=== PATIENT | female | born 1990 | race American Indian/Alaskan Native ===

== ENCOUNTER 2022-04-24 07:33 | Emergency (ER) | payer SELFPAY ==
[2022-04-24 08:12] VITALS: BP 113/62
--- NOTE | 2022-04-24 08:41 | XRay Report ---
XR chest routine 2V INDICATION / CLINICAL INFORMATION: cough. COMPARISON: None available. FINDINGS: SUPPORT DEVICES: None. HEART /PULMONARY VASCULATURE: No significant abnormality. LUNGS / PLEURA: No significant pulmonary or pleural abnormality. No pneumothorax. ADDITIONAL FINDINGS: No significant additional findings. IMPRESSION: 1. No acute findings. Signer Name: Fabian Pitts MD Signed: 04/24/2022 8:36 AM Workstation Name: [id number]
[2022-04-24] MEDS ORDERED: predniSONE 20 MG TAB PO ONE (10:16)
[2022-04-24] MEDS ORDERED: BENZONATATE 100 MG CAP PO ONE (10:16)
[2022-04-24] MEDS ORDERED: ACETAMINOPHEN W/CODEINE 300-30 MG TAB PO ONE (10:16)
--- NOTE | 2022-04-24 10:34 | Emergency Department Report ---
ED ENT HPI - General Chief complaint: Upper Respiratory Infection Stated complaint: SORETHROAT EYE IRRITATION Time Seen by Provider: 04/24/22 09:41 Source: patient Mode of arrival: Ambulatory Limitations: No Limitations - History of Present Illness Initial comments: 31-year-old black female with a past medical history of asthma presents to the emergency department for evaluation of 2-week history of sore throat, cough, then developed drainage from her right eye 2 days ago. She states that when she wakes up in the morning she has yellow crusted drainage to her eye and is crusted shut and she has to wipe it before she can open it. She states that it feels like dirt inside her eyes. She states that she is also has some shortness of breath, congestion and runny nose but denies fever. MD complaint: sore throat -: Gradual, week(s) (2) Location: throat Severity: moderate Severity scale (0 -10): 7 Quality: burning, aching Consistency: constant Worsens with: swallowing Associated Symptoms: cough, pain with swallowing, sore throat, rhinorrhea. denies: fever, gum swelling, toothache, tinnitus, hearing loss, discharge from ear - Related Data Previous Rx's Medication Instructions Recorded Last Taken Type Benzonatate [Tessalon Perles] 100 mg PO Q8HR PRN #30 cap 04/24/22 Unknown Rx Brompheniramine/Pseudoephed/Dm 10 ml PO TID PRN #120 ml 04/24/22 Unknown Rx [Bromfed Dm Cough Syrup] Ofloxacin 0.3% [Floxin 0.3% Otic] 2 drops OD QID 5 Days #1 bottle 04/24/22 Un known Rx Prednisone [predniSONE 10 mg 10 mg PO .TAPER #1 pack 04/24/22 Unknown Rx (6-Day Pack, 21 Tabs)] Allergies Allergy/AdvReac Type Severity Reaction Status Date / Time No Known Allergies Allergy Verified 04/24/22 07:57 ED Dental HPI - General Chief complaint: Upper Respiratory Infection Stated complaint: SORETHROAT EYE IRRITATION Time Seen by Provider: 04/24/22 09:41 Source: patient Mode of arrival: Ambulatory Limitations: No Limitations - Related Data Previous Rx's Medication Instructions Recorded Last Taken Type Benzonatate [Tessalon Perles] 100 mg PO Q8HR PRN #30 cap 04/24/22 Unknown Rx Brompheniramine/Pseudoephed/Dm 10 ml PO TID PRN #120 ml 04/24/22 Unknown Rx [Bromfed Dm Cough Syrup] Ofloxacin 0.3% [Floxin 0.3% Otic] 2 drops OD QID 5 Days #1 bottle 04/24/22 Unknown Rx Prednisone [predniSONE 10 mg 10 mg PO .TAPER #1 pack 04/24/22 Unknown Rx (6-Day Pack, 21 Tabs)] Allergies Allergy/AdvReac Type Severity Reaction Status Date / Time No Known Allergies Allergy Verified 04/24/22 07:57 ED Review of Systems ROS: Stated complaint: SORETHROAT EYE IRRITATION Other details as noted in HPI Comment: All other systems reviewed and negative Constitutional: denies: chills, fever, malaise, weakness Eyes: eye discharge. denies: vision change ENT: throat pain, congestion. denies: ear pain, dental pain, hearing loss, epistaxis Respiratory: cough, shortness of breath. denies: SOB with exertion, SOB at rest, stridor, wheezing Cardiovascular: denies: chest pain, palpitations Gastrointestinal: denies: abdominal pain, nausea, vomiting Musculoskeletal: denies: back pain Skin: denies: rash, lesions Neurological: denies: headache, weakness ED Past Medical Hx - Past Medical History Hx Asthma: Yes - Surgical History Past Surgical History?: No - Social History Smoking Status: Never Smoker - Medications Home Medications: Home Medications Medication Instructions Recorded Confirmed Last Taken Type Benzonatate [Tessalon Perles] 100 mg PO Q8HR PRN #30 cap 04/24/22 Unknown Rx Brompheniramine/Pseudoephed/Dm 10 ml PO TID PRN #120 ml 04/24/22 Unknown Rx [Bromfed Dm Cough Syrup] Ofloxacin 0.3% [Floxin 0.3% Otic] 2 drops OD QID 5 Days #1 bottle 04/24/22 Unknown Rx Prednisone [predniSONE 10 mg 10 mg PO .TAPER #1 pack 04/24/22 Unknown Rx (6-Day Pack, 21 Tabs)] ED Physical Exam - General Limitations: No Limitations General appearance: alert, in no apparent distress, anxious - Head Head exam: Present: atraumatic, normocephalic - Eye Eye exam: Present: conjunctival injection. Absent: periorbital tenderness - Expanded Eye Exam Expanded Eyelids: Swelling: Right Pupils: Regular, Round: Bilateral, Reactive: Bilateral Sclera/Conjunctival: Normal Inspection: Left, Injection: Right, Exudate: Right - ENT ENT exam: Present: TM's normal bilaterally. Absent: normal exam (Bilateral nasal mucosal edema and turbinate swelling noted with rhinorrhea), normal orophraynx (Erythema noted to posterior oropharynx) - Neck Neck exam: Present: normal inspection, full ROM. Absent: tenderness, lym phadenopathy - Respiratory Respiratory exam: Present: normal lung sounds bilaterally. Absent: respiratory distress, wheezes, rales, rhonchi, stridor, chest wall tenderness - Cardiovascular Cardiovascular Exam: Present: regular rate, normal heart sounds - GI/Abdominal GI/Abdominal exam: Present: soft, normal bowel sounds. Absent: distended, tenderness - Extremities Exam Extremities exam: Present: normal inspection, normal capillary refill - Back Exam Back exam: Present: normal inspection. Absent: CVA tenderness (R), CVA tenderness (L) - Neurological Exam Neurological exam: Present: alert, oriented X3, normal gait - Psychiatric Psychiatric exam: Present: normal affect, normal mood - Skin Skin exam: Present: warm, dry, intact, normal color ED Course Vital Signs 04/24/22 07:52 Temperature 98.3 F Pulse Rate 84 Respiratory 14 Rate Blood Pressure 113/62 O2 Sat by Pulse 99 Oximetry ED Medical Decision Making - Radiology Data Radiology results: report reviewed, image reviewed Chest x-ray: FINDINGS: SUPPORT DEVICES: None. HEART /PULMONARY VASCULATURE: No significant abnormality. LUNGS / PLEURA: No significant pulmonary or pleural abnormality. No pneumothorax. ADDITIONAL FINDINGS: No significant additional findings. IMPRESSION: 1. No acute findings. - Medical Decision Making 31-year-old black female with a past medical history of asthma presents to the emergency department for evaluation of 2-week history of sore throat, cough, then developed drainage from her right eye 2 days ago. She states that when she wakes up in the morning she has yellow crusted drainage to her eye and is crusted shut and she has to wipe it before she can open it. She states that it feels like dirt inside her eyes. She states that she is also has some shortness of breath, congestion and runny nose but denies fever. Chest x-ray without any acute abnormalities noted. Exam consistent with URI with cough and congestion along with bacterial conjunctivitis. Patient will be treated with steroid Dosepak, Tessalon Perles, Bromfed, and ofloxacin drops. She is advised to take medications as prescribed and follow-up with a primary care provider if no improvement or worsening symptoms. She verbalizes understanding of and agreement with plan of care. Critical care attestation.: If time is entered above; I have spent that time in minutes in the direct care of this critically ill patient, excluding procedure time. ED Disposition Clinical Impression: URI with cough and congestion, Bacterial conjunctivitis of right eye Disposition: HOME / SELF CARE / HOMELESS Is pt being admited?: No Does the pt Need Aspirin: No Condition: Stable Instructions: Upper Respiratory Infection, Adult, [id number], Bacterial Conjunctivitis, Adult, [id number], Cough, Adult, [id number] Additional Instructions: Take medications as prescribed. Follow-up with your primary care provider if no improvement or worsening symptoms. Return to the emergency department as needed. Prescriptions: Brompheniramine/Pseudoephed/Dm [Bromfed Dm Cough Syrup] 10 ml PO TID PRN #120 ml PRN Reason: Cough Ofloxacin 0.3% [Floxin 0.3% Otic] 2 drops OD QID 5 Days #1 bottle Prednisone [predniSONE 10 mg (6-Day Pack, 21 Tabs)] 10 mg PO .TAPER #1 pack Benzonatate [Tessalon Perles] 100 mg PO Q8HR PRN #30 cap PRN Reason: Cough Referrals: IVETT VALENCIA MD [Staff Physician] - 3-5 Days Forms: Work/School Release Form(ED) Time of Disposition: 10:46
== END 2022-04-26 17:14 | disposition home or self-care (01) ==
LOC: ED 07:33
DX: J06.9 Acute upper respiratory infection, unspecified (principal); H10.9 Unspecified conjunctivitis; B96.89 Other specified bacterial agents as the cause of diseases classified elsewhere; J45.909 Unspecified asthma, uncomplicated; Z79.899 Other long term (current) drug therapy
CPT/HCPCS: 71046; 99283

== ENCOUNTER 2022-05-18 20:49 | Emergency (ER) | payer SELFPAY ==
[2022-05-18 20:56] VITALS: BP 104/58
== END 2022-05-19 01:20 | disposition left against medical advice (07) ==
LOC: ED 20:49
DX: R21 Rash and other nonspecific skin eruption (principal); Z53.21 Procedure and treatment not carried out due to patient leaving prior to being seen by health care provider

== ENCOUNTER 2022-05-19 17:40 | Emergency (ER) | payer SELFPAY ==
[2022-05-19] MEDS ORDERED: predniSONE 20 MG TAB PO ONE (21:26)
[2022-05-19] MEDS ORDERED: diphenhydrAMINE 25 MG CAP PO ONE (21:26)
--- NOTE | 2022-05-19 22:53 | Emergency Department Report ---
ED General Adult HPI - General Chief complaint: Skin Rash Stated complaint: RASH Time Seen by Provider: 05/19/22 21:25 Source: patient Mode of arrival: Ambulatory Limitations: No Limitations - History of Present Illness Initial comments: Patient 31-year-old female with history of asthma who presents for asthma to bilateral arms and trunk for 1 week. Denies fevers or chills there is no open lesions or weeping. Rash is rough and raised in primary symptom is itching. Patient denies shortness of breath there is been no wheezing. No fevers or chills. Patient denies other complaint. Patient denies history of eczema flare. - Related Data Previous Rx's Medication Instructions Recorded Last Taken Type Benzonatate [Tessalon Perles] 100 mg PO Q8HR PRN #30 cap 04/24/22 Unknown Rx Brompheniramine/Pseudoephed/Dm 10 ml PO TID PRN #120 ml 04/24/22 Unknown Rx [Bromfed Dm Cough Syrup] Ofloxacin 0.3% [Floxin 0.3% Otic] 2 drops OD QID 5 Days #1 bottle 04/24/22 Unknown Rx Prednisone [predniSONE 10 mg 10 mg PO .TAPER #1 pack 04/24/22 Unknown Rx (6-Day Pack, 21 Tabs)] Fexofenadine HCl [Allergy Relief] 180 mg PO BID PRN #30 tab 05/19/22 Unknown Rx Triamcinolone Aceton 0.1% (Nf) 1 applic TP BID 10 Days #1 tube 05/19/22 Unknown Rx [Kenalog (NF)] methylPREDNISolone [Medrol 4MG 4 mg PO DAILY #1 pack 05/19/22 Unknown Rx DOSEPAK (21 tabs)] Allergies Allergy/AdvReac Type Severity Reaction Status Date / Time No Known Allergies Allergy Verified 04/24/22 07:57 ED Review of Systems ROS: Stated complaint: RASH Other details as noted in HPI Constitutional: denies: chills, fever Eyes: denies: eye pain, eye discharge, vision change ENT: denies: ear pain, throat pain Respiratory: denies: cough, shortness of breath, wheezing Cardiovascular: denies: chest pain, palpitations Endocrine: no symptoms reported Gastrointestinal: denies: abdominal pain, nausea, diarrhea Genitourinary: denies: urgency, dysuria, discharge Musculoskeletal: denies: back pain, joint swelling, arthralgia Skin: rash (Bilateral arms and trunk), pruritus. denies: lesions Neurological: denies: headache, weakness, paresthesias Psychiatric: denies: anxiety, depression Hematological/Lymphatic: denies: easy bleeding, easy bruising ED Past Medical Hx - Past Medical History Previous Medical History?: Yes Hx Asthma: Yes - Surgical History Past Surgical History?: No - Social History Smoking Status: Unknown if ever smoked Substance Use Type: None - Medications Home Medications: Home Medications Medication Instructions Recorded Confirmed Last Taken Type Benzonatate [Tessalon Perles] 100 mg PO Q8HR PRN #30 cap 04/24/22 Unknown Rx Brompheniramine/Pseudoephed/Dm 10 ml PO TID PRN #120 ml 04/24/22 Unknown Rx [Bromfed Dm Cough Syrup] Ofloxacin 0.3% [Floxin 0.3% Otic] 2 drops OD QID 5 Days #1 bottle 04/24/22 Unknown Rx Prednisone [predniSONE 10 mg 10 mg PO .TAPER #1 pack 04/24/22 Unknown Rx (6-Day Pack, 21 Tabs)] Fexofenadine HCl [Allergy Relief] 180 mg PO BID PRN #30 tab 05/19/22 Unknown Rx Triamcinolone Aceton 0.1% (Nf) 1 applic TP BID 10 Days #1 tube 05/19/22 Unknown Rx [Kenalog (NF)] methylPREDNISolone [Medrol 4MG 4 mg PO DAILY #1 pack 05/19/22 Unknown Rx DOSEPAK (21 tabs)] ED Physical Exam - General Limitations: No Limitations General appearance: alert, in no apparent distress - Head Head exam: Present: atraumatic, normocephalic - Eye Eye exam: Present: normal appearance, EOMI Pupils: Present: normal accommodation - ENT ENT exam: Present: mucous membranes moist - Neck Neck exam: Present: normal inspection - Respiratory Respiratory exam: Present: normal lung sounds bilaterally. Absent: respiratory distress, wheezes, stridor - Cardiovascular Cardiovascular Exam: Present: regular rate, normal rhythm, normal heart sounds. Absent: systolic murmur, diastolic murmur, rubs, gallop - GI/Abdominal GI/Abdominal exam: Present: soft, normal bowel sounds. Absent: distended, tenderness - Rectal Rectal exam: Present: deferred - Extremities Exam Extremities exam: Present: normal inspection, full ROM, normal capillary refill - Back Exam Back exam: Present: normal inspection, full ROM. Absent: CVA tenderness (R), CVA tenderness (L) - Neurological Exam Neurological exam: Present: alert, oriented X3 - Psychiatric Psychiatric exam: Present: normal affect, normal mood - Skin Skin exam: Present: warm, dry, intact, normal color, rash (Raised rough mild erythema no weeping no fever), erythema, urticaria ED Course Vital Signs 05/19/22 18:20 Temperature 98.8 F Pulse Rate 75 Respiratory 18 Rate Blood Pressure 112/56 O2 Sat by Pulse 100 Oximetry ED Medical Decision Making - Medical Decision Making Plan treat for contact dermatitis, there are no other asthma symptoms no wheezing no stridor. Patient DC to home with prescriptions at this time patient will follow-up with primary care doctor in 2 to 3 days. Patient verbalized agreement and understanding of discharge plan. Patient DC'd home in stable condition at this time. Critical care attestation.: If time is entered above; I have spent that time in minutes in the direct care of this critically ill patient, excluding procedure time. ED Disposition Clinical Impression: Contact dermatitis Qualifiers: Contact dermatitis type: allergic Contact dermatitis trigger: unspecified trigger Qualified Code(s): L23.9 - Allergic contact dermatitis, unspecified cause Disposition: HOME / SELF CARE / HOMELESS Is pt being admited?: No Does the pt Need Aspirin: No Condition: Stable Instructions: Contact Dermatitis, [id number] Additional Instructions: Take medications as prescribed, follow-up with your doctor in 2 to 3 days. Return to emergency department should symptoms worsen. Prescriptions: Fexofenadine HCl [Allergy Relief] 180 mg PO BID PRN #30 tab PRN Reason: Itching Triamcinolone Aceton 0.1% (Nf) [Kenalog (NF)] 1 applic TP BID 10 Days #1 tube methylPREDNISolone [Medrol 4MG DOSEPAK (21 tabs)] 4 mg PO DAILY #1 pack Referrals: TRANG LAMAR MD [Staff Physician] - 3-5 Days Forms: Work/School Release Form(ED) Time of Disposition: 23:04
[2022-05-19 23:24] VITALS: BP 122/67
== END 2022-05-19 23:24 | disposition home or self-care (01) ==
LOC: ED 17:40
DX: L25.9 Unspecified contact dermatitis, unspecified cause (principal); J45.909 Unspecified asthma, uncomplicated
CPT/HCPCS: 99282; 99283